=== PATIENT | male | born 1955 | race African-American/Black ===

== ENCOUNTER 2020-04-04 11:36 | Inpatient (IN) | payer OTHER ==
[~2020-04-04] VITALS: Ht 188 cm; Wt 110.8 kg
[2020-04-04] MEDS ORDERED: HALOPERIDOL LACTATE 5 MG/ML INJ VIAL IM ONE (12:00)
[2020-04-04] MEDS ORDERED: diphenhdrAMINE HCL 50 MG/1 ML VL IV ONE (12:00)
[2020-04-04 12:20] LABS: Basophils # (auto) 0 10 ^3/uL (0-0.2); Basophils % (auto) 0.4 % (0.0-2.0); Eosinophils # (auto) 0 10 ^3/uL (0-0.8); Eosinophils % (auto) 0.1 % (0.0-7.0); Hematocrit 47.1 % (41.0-53.0); Hemoglobin 16.3 g/dL (13.5-17.5); Lymphocytes # (auto) 0.8 10 ^3/uL (0.4-5.4); Lymphocytes % (auto) 9.1 % (10.0-50.0); Mean Corpuscular Hemoglobin 30.6 pg (28.0-32.0); Mean Corpuscular Hgb Conc. 34.6 g/dL (32.0-36.0); Mean Corpuscular Volume 88.6 fL (80.0-100.0); Monocytes # (auto) 0.8 10 ^3/uL (0-1.3); Monocytes % (auto) 9.3 % (0.0-12.0); Neutrophils # (auto) 6.8 10 ^3/uL (1.6-8.6); Neutrophils % (auto) 81.1 % (37.0-80.0); Nucleated Red Blood Cells % 0.8 %; Platelet Count (auto) 120 10^3/uL (140-450); Red Blood Cells 5.31 10^6/uL (4.5-5.90); Red Cell Distribution Width 13.6 % (11.8-14.3); White Blood Cell 8.3 10^3/uL (4.4-10.8)
[2020-04-04 12:37] LABS: Calcium 8.5 mg/dL (8.5-10.1); Potassium 3.4 mmol/L (3.5-5.1)
[2020-04-04 12:43] LABS: BUN/Creatinine Ratio 19.8; Bilirubin, Total 1.3 mg/dL (0.2-1.0); Total Protein 7.5 g/dL (6.4-8.2)
[2020-04-04] MEDS ORDERED: ENOXAPARIN SOD 60 MG/0.6 ML SYRINGE SC ONE (13:00)
[2020-04-04] MEDS ORDERED: POTASSIUM CHL 20 Meq TABLET PO ONE (14:00)
[2020-04-04] MEDS ORDERED: ASPirin 81 mg TAB PO ONE (14:00)
[2020-04-04] MEDS ORDERED: ONDANSETRON HCL 4 MG/2 ML VIAL IV PRN (14:30)
[2020-04-04] MEDS ORDERED: ACETAMINOPHEN 500 MG TAB PO PRN (14:30)
[2020-04-04] MEDS ORDERED: hydrALAZINE HCL 20 MG/ML VL IV PRN (14:30)
[2020-04-04] MEDS ORDERED: NITROGLYCERIN 0.4 MG SL TAB SL PRN (14:30)
[2020-04-04] MEDS ORDERED: ALBUTEROL SULF HFA 90MCG INH 200DOSE IN PRN (14:30)
[2020-04-04] MEDS ORDERED: HYDROcodone-ACET 5/325MG TAB PO PRN (14:30)
[2020-04-04] MEDS ORDERED: MORPHINE SULF INJ 2 MG/ML SYRINGE 1ML IV PRN ×2 (14:30)
[2020-04-04] MEDS ORDERED: AZITHROMYCIN 500MG/ 250ML 250 ML IV SCH (16:00)
[2020-04-04] MEDS ORDERED: LISI2.5T47 PO (17:09)
[2020-04-04] MEDS ORDERED: ATOR10TA52 PO (17:09)
[2020-04-04] MEDS ORDERED: ASPI-498 PO (17:09)
[2020-04-04] MEDS ORDERED: HYDR25TA5 PO (17:09)
[2020-04-04 19:54] LABS: CRP High Sensitivity 8.5 mg/dL (< 0.3)
[2020-04-04] MEDS: ATORVASTATIN 20 MG TAB PO SCH (21:51)
[2020-04-04] MEDS: METOPROLOL TARTRATE 25 MG TAB PO SCH (21:51)
[2020-04-04] MEDS: DOCUSATE SOD 100 MG CAP PO SCH (21:52)
[2020-04-05] VITALS (7 sets, daily range): BP systolic 104–122; BP diastolic 59–77
[2020-04-05 06:22] LABS: Calcium 8.6 mg/dL (8.5-10.1); Potassium 4.2 mmol/L (3.5-5.1)
[2020-04-05 06:23] LABS: INR 1.12 (0.9-1.15); Partial Thromboplastin Time 40.5 sec (23.0-31.2)
[2020-04-05 06:27] LABS: BUN/Creatinine Ratio 43.1
[2020-04-05] MEDS ORDERED: CAR125T PO (07:03)
[2020-04-05 07:30] LABS: Basophils # (auto) 0 10 ^3/uL (0-0.2); Basophils % (auto) 0.2 % (0.0-2.0); Eosinophils # (auto) 0 10 ^3/uL (0-0.8); Eosinophils % (auto) 0.4 % (0.0-7.0); Hematocrit 43.9 % (41.0-53.0); Hemoglobin 15.3 g/dL (13.5-17.5); Lymphocytes # (auto) 0.7 10 ^3/uL (0.4-5.4); Lymphocytes % (auto) 13.1 % (10.0-50.0); Mean Corpuscular Hemoglobin 30.7 pg (28.0-32.0); Mean Corpuscular Hgb Conc. 34.8 g/dL (32.0-36.0); Mean Corpuscular Volume 88.2 fL (80.0-100.0); Monocytes # (auto) 0.5 10 ^3/uL (0-1.3); Monocytes % (auto) 8.3 % (0.0-12.0); Neutrophils # (auto) 4.4 10 ^3/uL (1.6-8.6); Nucleated Red Blood Cells % 0.5 %; Red Blood Cells 4.98 10^6/uL (4.5-5.90); Red Cell Distribution Width 13.3 % (11.8-14.3); White Blood Cell 5.7 10^3/uL (4.4-10.8)
[2020-04-05 07:38] LABS: Platelet Count (auto) 115 10^3/uL (140-450)
[2020-04-05] MEDS ORDERED: cefTRIAXone 1GM/50ML D5W 50 ML IV SCH (09:00)
[2020-04-05] MEDS: DOCUSATE SOD 100 MG CAP PO SCH ×2 (10:00→22:00)
[2020-04-05] MEDS ORDERED: ASPirin-EC 81 mg tab PO SCH (10:00)
[2020-04-05] MEDS: levoFLOXacin 500MG 100 ML IV SCH (10:13)
[2020-04-05] MEDS: CHOLECALCIFEROL (VITD3) 2,000 UNIT CAP PO SCH (10:16)
[2020-04-05] MEDS: ASPirin 81 mg TAB PO SCH (10:16)
[2020-04-05] MEDS: METOPROLOL TARTRATE 25 MG TAB PO SCH ×2 (10:17→22:00)
[2020-04-05] MEDS: ZINC SULFATE 220mg CAP or TAB PO SCH (10:17)
[2020-04-05] MEDS: LISINOPRIL 10 MG TAB PO SCH (10:17)
[2020-04-05] MEDS: ASCORBIC ACID 1,000 MG TAB PO SCH (10:17)
[2020-04-05] MEDS: FAMOTIDINE 20 MG TAB PO SCH (10:17)
[2020-04-05] MEDS: ENOXAPARIN SOD 100 MG/1 ML SYRINGE SC SCH (10:17)
[2020-04-05 13:43] LABS: Urine Bacteria NONE SEEN /hpf (None Seen); Urine Blood Negative /uL (Negative); Urine Specific Gravity 1.031 (1.001-1.035); Urine WBC 3 /hpf (0 - 3)
[2020-04-05] MEDS ORDERED: FUROSEMIDE 20 MG/2 ML VIAL IV ONE (20:45)
[2020-04-05] MEDS ORDERED: POTASSIUM EFFERVESENT TAB 25 MEQ PO ONE (20:45)
[2020-04-05] MEDS ORDERED: REMDESIVIR PER PHARMACY 0 ML IV SCH (20:45)
[2020-04-05] MEDS: ATORVASTATIN 20 MG TAB PO SCH (21:44)
[2020-04-05] MEDS ORDERED: REMDESIVIR 200 MG in NS 210ml LOADING DOSE ADULT IV ONE (22:00)
[2020-04-06 00:10] VITALS: BP 104/69
[2020-04-06 01:20] VITALS: BP 95/59
[2020-04-06 06:28] LABS: Albumin 2.6 g/dL (3.4-5.0); Calcium 8.4 mg/dL (8.5-10.1); Potassium 3.3 mmol/L (3.5-5.1)
[2020-04-06 06:45] LABS: BUN/Creatinine Ratio 24.6; Bilirubin, Total 1.1 mg/dL (0.2-1.0); Total Protein 6.9 g/dL (6.4-8.2)
[2020-04-06 08:00] VITALS: BP 106/45
[2020-04-06] MEDS: levoFLOXacin 500MG 100 ML IV SCH (09:44)
[2020-04-06] MEDS: FAMOTIDINE 20 MG TAB PO SCH (09:45)
[2020-04-06] MEDS: ASCORBIC ACID 1,000 MG TAB PO SCH (09:45)
[2020-04-06] MEDS: CHOLECALCIFEROL (VITD3) 2,000 UNIT CAP PO SCH (09:46)
[2020-04-06] MEDS: METOPROLOL TARTRATE 25 MG TAB PO SCH (09:46)
[2020-04-06] MEDS: LISINOPRIL 10 MG TAB PO SCH (09:46)
[2020-04-06] MEDS: DOCUSATE SOD 100 MG CAP PO SCH ×2 (09:47→20:38)
[2020-04-06] MEDS: ENOXAPARIN SOD 100 MG/1 ML SYRINGE SC SCH (09:47)
[2020-04-06] MEDS: ZINC SULFATE 220mg CAP or TAB PO SCH (09:47)
[2020-04-06] MEDS: ASPirin 81 mg TAB PO SCH (09:47)
[2020-04-06] MEDS ORDERED: POTASSIUM EFFERVESENT TAB 25 MEQ PO SCH (10:00)
[2020-04-06] MEDS ORDERED: FUROSEMIDE 20 MG/2 ML VIAL IV SCH (10:00)
[2020-04-06] MEDS: REMDESIVIR 100mg 100 MG in SODIUM CHL 0.9% 230 ML IV SCH (15:40)
[2020-04-06 16:00] VITALS: BP 128/68
[2020-04-06] MEDS: ATORVASTATIN 20 MG TAB PO SCH (20:38)
[2020-04-06 23:44] VITALS: BP 107/69
[2020-04-07 08:00] VITALS: BP 108/51
[2020-04-07 08:16] LABS: Albumin 2.6 g/dL (3.4-5.0); Calcium 8.5 mg/dL (8.5-10.1); Potassium 3.3 mmol/L (3.5-5.1)
[2020-04-07 08:24] LABS: BUN/Creatinine Ratio 22.1; Bilirubin, Total 1.2 mg/dL (0.2-1.0)
[2020-04-07] MEDS: DOCUSATE SOD 100 MG CAP PO SCH ×2 (10:00→22:53)
[2020-04-07] MEDS: ASPirin 81 mg TAB PO SCH (10:42)
[2020-04-07] MEDS: ZINC SULFATE 220mg CAP or TAB PO SCH (10:42)
[2020-04-07] MEDS: levoFLOXacin 500MG 100 ML IV SCH (10:42)
[2020-04-07] MEDS: ASCORBIC ACID 1,000 MG TAB PO SCH (10:43)
[2020-04-07] MEDS: ENOXAPARIN SOD 100 MG/1 ML SYRINGE SC SCH (10:43)
[2020-04-07] MEDS: CHOLECALCIFEROL (VITD3) 2,000 UNIT CAP PO SCH (10:43)
[2020-04-07] MEDS: FAMOTIDINE 20 MG TAB PO SCH (10:43)
[2020-04-07] MEDS ORDERED: POTASSIUM CHL 20 Meq TABLET PO ONE (11:30)
[2020-04-07] MEDS: REMDESIVIR 100mg 100 MG in SODIUM CHL 0.9% 230 ML IV SCH (15:25)
[2020-04-07 15:52] VITALS: BP 116/73
[2020-04-07] MEDS: ATORVASTATIN 20 MG TAB PO SCH (22:54)
[2020-04-08] VITALS: BP 118/75
[2020-04-08 06:04] LABS: Albumin 2.7 g/dL (3.4-5.0); Calcium 8.6 mg/dL (8.5-10.1); Potassium 3.9 mmol/L (3.5-5.1)
[2020-04-08 06:09] LABS: BUN/Creatinine Ratio 22.1; Bilirubin, Total 1.2 mg/dL (0.2-1.0)
[2020-04-08 08:00] VITALS: BP 103/65
[2020-04-08] MEDS: ENOXAPARIN SOD 100 MG/1 ML SYRINGE SC SCH (09:45)
[2020-04-08] MEDS: levoFLOXacin 500MG 100 ML IV SCH (09:45)
[2020-04-08] MEDS: ASCORBIC ACID 1,000 MG TAB PO SCH (09:45)
[2020-04-08] MEDS: FAMOTIDINE 20 MG TAB PO SCH (09:45)
[2020-04-08] MEDS: ZINC SULFATE 220mg CAP or TAB PO SCH (09:45)
[2020-04-08] MEDS: CHOLECALCIFEROL (VITD3) 2,000 UNIT CAP PO SCH (09:45)
[2020-04-08] MEDS: ASPirin 81 mg TAB PO SCH (09:45)
[2020-04-08] MEDS: DOCUSATE SOD 100 MG CAP PO SCH ×2 (10:00→22:00)
[2020-04-08] MEDS: REMDESIVIR 100mg 100 MG in SODIUM CHL 0.9% 230 ML IV SCH (15:30)
[2020-04-08 16:00] VITALS: BP 117/77
[2020-04-08] MEDS: ATORVASTATIN 20 MG TAB PO SCH (23:00)
[2020-04-09] VITALS: BP 121/75
[2020-04-09 07:38] LABS: Albumin 2.8 g/dL (3.4-5.0); Calcium 8.9 mg/dL (8.5-10.1); Potassium 4.1 mmol/L (3.5-5.1)
[2020-04-09 07:45] LABS: BUN/Creatinine Ratio 18.5; Bilirubin, Total 1.2 mg/dL (0.2-1.0); Total Protein 7.2 g/dL (6.4-8.2)
[2020-04-09 08:00] VITALS: BP 109/69
[2020-04-09] MEDS: FAMOTIDINE 20 MG TAB PO SCH (09:40)
[2020-04-09] MEDS: ZINC SULFATE 220mg CAP or TAB PO SCH (09:40)
[2020-04-09] MEDS: ENOXAPARIN SOD 100 MG/1 ML SYRINGE SC SCH (09:40)
[2020-04-09] MEDS: levoFLOXacin 500MG 100 ML IV SCH (09:40)
[2020-04-09] MEDS: ASCORBIC ACID 1,000 MG TAB PO SCH (09:40)
[2020-04-09] MEDS: CHOLECALCIFEROL (VITD3) 2,000 UNIT CAP PO SCH (09:40)
[2020-04-09] MEDS: ASPirin 81 mg TAB PO SCH (09:40)
[2020-04-09] MEDS: DOCUSATE SOD 100 MG CAP PO SCH ×2 (09:41→22:00)
[2020-04-09 16:00] VITALS: BP 114/80
[2020-04-09] MEDS: REMDESIVIR 100mg 100 MG in SODIUM CHL 0.9% 230 ML IV SCH (16:30)
[2020-04-09] MEDS: DexAMETHasone SOD PHOS 4 MG/1ML SDV INJ IV SCH (22:24)
[2020-04-09] MEDS: ATORVASTATIN 20 MG TAB PO SCH (22:24)
[2020-04-10] VITALS: BP 119/85
[2020-04-10 07:49] LABS: Basophils # (auto) 0 10 ^3/uL (0-0.2); Basophils % (auto) 0.5 % (0.0-2.0); Eosinophils # (auto) 0 10 ^3/uL (0-0.8); Eosinophils % (auto) 0.4 % (0.0-7.0); Hematocrit 45.6 % (41.0-53.0); Hemoglobin 15.8 g/dL (13.5-17.5); Lymphocytes # (auto) 0.6 10 ^3/uL (0.4-5.4); Lymphocytes % (auto) 9.4 % (10.0-50.0); Mean Corpuscular Hemoglobin 30.4 pg (28.0-32.0); Mean Corpuscular Hgb Conc. 34.7 g/dL (32.0-36.0); Mean Corpuscular Volume 87.6 fL (80.0-100.0); Monocytes # (auto) 0.6 10 ^3/uL (0-1.3); Monocytes % (auto) 9.5 % (0.0-12.0); Neutrophils # (auto) 4.9 10 ^3/uL (1.6-8.6); Neutrophils % (auto) 80.2 % (37.0-80.0); Nucleated Red Blood Cells % 0.2 %; Platelet Count (auto) 175 10^3/uL (140-450); Red Cell Distribution Width 13.2 % (11.8-14.3); White Blood Cell 6.2 10^3/uL (4.4-10.8)
[2020-04-10 07:53] LABS: INR 1.25 (0.9-1.15); Partial Thromboplastin Time 27.8 sec (23.0-31.2)
[2020-04-10 08:00] VITALS: BP 135/81
[2020-04-10 08:20] LABS: Calcium 9.1 mg/dL (8.5-10.1); Potassium 4.9 mmol/L (3.5-5.1)
[2020-04-10] MEDS ORDERED: IOHEXOL 350 MG/ML 100ML IJ ONE (08:31)
[2020-04-10] MEDS ORDERED: LIDOCAINE 2%HCL (LOCAL ANESTH.) INJ 20ML MDV ONE ×2 (08:31→09:24)
[2020-04-10] MEDS ORDERED: HEPARIN SODIUM (PORCINE) 5000 UNITS/ML 1ML VIAL ONE (09:04)
[2020-04-10] MEDS ORDERED: VERAPAMIL 2.5MG/ML INJ 2ML VIAL IV ONE (09:04)
[2020-04-10] MEDS ORDERED: ANGIOMAX 250 MG VIAL IV ONE (09:04)
[2020-04-10] MEDS ORDERED: fentaNYL CITRATE 100 MCG/2 ML VL ONE (09:05)
[2020-04-10] MEDS ORDERED: SODIUM CHL 0.9% 0 ML ONE (09:05)
[2020-04-10] MEDS ORDERED: MIDAZOLAM HCL 1MG/1ML-2 ML VIAL ONE (09:05)
[2020-04-10] MEDS: ASPirin 81 mg TAB PO SCH (09:24)
[2020-04-10] MEDS: DOCUSATE SOD 100 MG CAP PO SCH ×2 (10:00→22:00)
[2020-04-10] MEDS: levoFLOXacin 500MG 100 ML IV SCH (11:10)
[2020-04-10] MEDS: FAMOTIDINE 20 MG TAB PO SCH (11:10)
[2020-04-10] MEDS: ZINC SULFATE 220mg CAP or TAB PO SCH (11:10)
[2020-04-10] MEDS: CHOLECALCIFEROL (VITD3) 2,000 UNIT CAP PO SCH (11:10)
[2020-04-10] MEDS: ENOXAPARIN SOD 100 MG/1 ML SYRINGE SC SCH (11:10)
[2020-04-10] MEDS: DexAMETHasone SOD PHOS 4 MG/1ML SDV INJ IV SCH ×2 (11:11→23:00)
[2020-04-10] MEDS: ASCORBIC ACID 1,000 MG TAB PO SCH (11:11)
[2020-04-10 16:00] VITALS: BP 133/85
[2020-04-10] MEDS ORDERED: METOPROLOL TARTRATE 25 MG TAB PO SCH (22:00)
[2020-04-10] MEDS: ATORVASTATIN 20 MG TAB PO SCH (23:00)
[2020-04-10] MEDS: CARVEDILOL 3.125 MG TAB PO SCH (23:00)
[2020-04-11] VITALS: BP 116/70
[2020-04-11 06:22] LABS: Calcium 9.1 mg/dL (8.5-10.1); Magnesium 2.8 mg/dL (1.6-2.6); Potassium 4.5 mmol/L (3.5-5.1)
[2020-04-11 06:32] LABS: BUN/Creatinine Ratio 23.4; Bilirubin, Total 1.1 mg/dL (0.2-1.0); CRP High Sensitivity 1.76 mg/dL (< 0.3); Total Protein 7.6 g/dL (6.4-8.2)
[2020-04-11 07:25] LABS: INR 1.32 (0.9-1.15)
[2020-04-11 08:00] VITALS: BP 114/67
[2020-04-11] MEDS: ASCORBIC ACID 1,000 MG TAB PO SCH (09:31)
[2020-04-11] MEDS: DOCUSATE SOD 100 MG CAP PO SCH ×2 (09:31→22:00)
[2020-04-11] MEDS: ZINC SULFATE 220mg CAP or TAB PO SCH (09:31)
[2020-04-11] MEDS: DexAMETHasone SOD PHOS 4 MG/1ML SDV INJ IV SCH ×2 (09:31→22:00)
[2020-04-11] MEDS: ENOXAPARIN SOD 100 MG/1 ML SYRINGE SC SCH (09:31)
[2020-04-11] MEDS: ASPirin 81 mg TAB PO SCH (09:31)
[2020-04-11] MEDS: FAMOTIDINE 20 MG TAB PO SCH (09:31)
[2020-04-11] MEDS: levoFLOXacin 500MG 100 ML IV SCH (09:31)
[2020-04-11] MEDS: CHOLECALCIFEROL (VITD3) 2,000 UNIT CAP PO SCH (09:32)
[2020-04-11] MEDS: CARVEDILOL 3.125 MG TAB PO SCH ×2 (09:32→22:11)
[2020-04-11] MEDS ORDERED: CLOPIDOGREL BISULFATE 75 MG TAB PO ONE (10:30)
[2020-04-11 16:00] VITALS: BP 136/82
[2020-04-11] MEDS: ATORVASTATIN 20 MG TAB PO SCH (22:11)
[2020-04-12] VITALS: BP 110/77
[2020-04-12 07:57] VITALS: BP 139/77
[2020-04-12 08:19] LABS: Albumin 2.9 g/dL (3.4-5.0); Potassium 4.8 mmol/L (3.5-5.1)
[2020-04-12 08:25] LABS: BUN/Creatinine Ratio 25.4; Bilirubin, Total 0.8 mg/dL (0.2-1.0); Total Protein 7.2 g/dL (6.4-8.2)
[2020-04-12 08:50] LABS: INR 1.27 (0.9-1.15)
[2020-04-12] MEDS ORDERED: CLOPIDOGREL BISULFATE 75 MG TAB PO SCH (10:00)
[2020-04-12] MEDS: DOCUSATE SOD 100 MG CAP PO SCH ×2 (10:00→12:17)
[2020-04-12] MEDS: ENOXAPARIN SOD 40 MG/0.4 ML SYRINGE SC SCH ×2 (10:00→12:19)
[2020-04-12] MEDS: levoFLOXacin 500MG 100 ML IV SCH (12:16)
[2020-04-12] MEDS: ASPirin 81 mg TAB PO SCH (12:16)
[2020-04-12] MEDS: DexAMETHasone SOD PHOS 4 MG/1ML SDV INJ IV SCH (12:16)
[2020-04-12] MEDS: ZINC SULFATE 220mg CAP or TAB PO SCH (12:17)
[2020-04-12] MEDS: CARVEDILOL 3.125 MG TAB PO SCH (12:18)
[2020-04-12] MEDS: FAMOTIDINE 20 MG TAB PO SCH (12:18)
[2020-04-12] MEDS: ASCORBIC ACID 1,000 MG TAB PO SCH (12:18)
[2020-04-12] MEDS: CHOLECALCIFEROL (VITD3) 2,000 UNIT CAP PO SCH (12:19)
== END 2020-04-12 14:47 | disposition left against medical advice (07) | DRG 871 ==
LOC: ER 11:36 → EDBD 11:36 → TELE 11:37 → TELE-WESTW 04-05 03:30
PROVIDERS: ADMIT Nurse Practitioner Acute Care; ATTEND Internal Medicine Nephrology
PROC: XW033E5 Introduction of Remdesivir Anti-infective into Peripheral Vein, Percutaneous Approach, New Technology Group 5 (ICD-10-PCS; 2020-04-05)
PROC: B2111ZZ Fluoroscopy of Multiple Coronary Arteries using Low Osmolar Contrast (ICD-10-PCS; principal; 2020-04-10)
PROC: 4A023N7 Measurement of Cardiac Sampling and Pressure, Left Heart, Percutaneous Approach (ICD-10-PCS; 2020-04-10)
PROC: B2151ZZ Fluoroscopy of Left Heart using Low Osmolar Contrast (ICD-10-PCS; 2020-04-10)
DX: A41.89 Other specified sepsis (principal); U07.1 COVID-19; J12.82 Pneumonia due to coronavirus disease 2019; J96.01 Acute respiratory failure with hypoxia; I50.43 Acute on chronic combined systolic (congestive) and diastolic (congestive) heart failure; N17.0 Acute kidney failure with tubular necrosis; I21.4 Non-ST elevation (NSTEMI) myocardial infarction; E44.0 Moderate protein-calorie malnutrition; D68.59 Other primary thrombophilia; J44.0 Chronic obstructive pulmonary disease with (acute) lower respiratory infection; I13.0 Hypertensive heart and chronic kidney disease with heart failure and stage 1 through stage 4 chronic kidney disease, or unspecified chronic kidney disease; E87.6 Hypokalemia; N18.30 Chronic kidney disease, stage 3 unspecified; Z53.29 Procedure and treatment not carried out because of patient's decision for other reasons; R73.9 Hyperglycemia, unspecified; E66.9 Obesity, unspecified; E78.5 Hyperlipidemia, unspecified; I25.10 Atherosclerotic heart disease of native coronary artery without angina pectoris; R65.20 Severe sepsis without septic shock; Z95.5 Presence of coronary angioplasty implant and graft; Z88.0 Allergy status to penicillin; Z68.28 Body mass index [BMI] 28.0-28.9, adult
CPT/HCPCS: 36415; 36600; 70450; 71045; 76705; 80048; 80053; 80061; 81001; 82306; 82728; 82805; 83605; 83615; 83735; 83880; 84443; 84484; 85025; 85379; 85610; 85730; 86141; 86850; 86900; 86901; 87426; 93005; 93306; 93458; 93970; 94640; 99152; G0378; J1100; J1956; J2250